=== PATIENT | female | born 1940 | race African-American/Black ===

== ENCOUNTER 2020-05-02 08:22 | Emergency (ER) | payer OTHER, MEDICAID ==
[2020-05-02] MEDS ORDERED: METOCLOPRAMIDE HCL INJ/PF 10 MG/2 ML SDV IV ONE (09:56)
--- NOTE | 2020-05-02 10:10 | ER Document Report ---
ED Headache - General Chief Complaint: Headache >24 hrs old Stated Complaint: HEADACHE Notes: CHIEF COMPLAINT: Left-sided headache for 2 days HPI: 80-year-old female with history of migraine headaches presenting for left- sided headache over the last 2 days has been fairly constant. Started as a discomfort around the left eye went into the left holiness and then into the left posterior scalp region. Does not change with position or movement. She reports no specific blurring of vision of the left eye. No weakness numbness or tingling in the left or right extremities. No slurred speech. States this feels atypical for her migraines she did try to take Fioricet at home without resolution of the headache. She has not had a fever or other recent illness. ROS: See HPI - all other systems were reviewed and are otherwise negative Constitutional: no fever Eyes: no drainage, no blurred vision ENT: no runny nose, no sore throat Cardiovascular: no chest pain Resp: no SOB, no cough GI: no vomiting, no diarrhea, no abdominal pain : no dysuria Integumentary: no rash Allergy: no hives Musculoskeletal: no extremity pain or swelling Neurological: no numbness/tingling, no weakness, positive headache MEDICATIONS: I agree with the patient medications as charted by the RN. ALLERGIES: I agree with the allergies as charted by the RN. PAST MEDICAL HISTORY/PAST SURGICAL HISTORY: Reviewed and agree as charted by RN. SOCIAL HISTORY: Reviewed and agree as charted by RN. FAMILY HISTORY: No significant familial comorbid conditions directly related to patient complaint EXAM: Reviewed vital signs as charted by RN. CONSTITUTIONAL: Alert and oriented and responds appropriately to questions. Well-appearing; well-nourished HEAD: Normocephalic; atraumatic EYES: PERRL; Conjunctivae clear, sclerae non-icteric. No photophobia. Funduscopic exam does not reveal evidence of disc edema or hemorrhage ENT: normal nose; no rhinorrhea; moist mucous membranes; pharynx without lesions noted, no uvula edema or deviation, no tonsillar hypertrophy, phonation normal NECK: Supple without meningismus; non-tender; no cervical lymphadenopathy, no masses CARD: RRR; no murmurs, no clicks, no rubs, no gallops; symmetric distal pulses RESP: Normal chest excursion without splinting or tachypnea; breath sounds clear and equal bilaterally; no wheezes, no rhonchi, no rales, pulse oximetry 97% on room air not hypoxic ABD/GI: Normal bowel sounds; non-distended; soft, non-tender, no rebound, no guarding; no palpable organomegaly or masses. BACK: The back appears normal and is non-tender to palpation, there is no CVA tenderness EXT: Normal ROM in all joints; non-tender to palpation; no cyanosis, no effusions, no edema SKIN: Normal color for age and race; warm; dry; good turgor; no acute lesions noted, specifically in the left periorbital region or left scalp region NEURO: Moves all extremities equally; Motor and sensory function intact. Patient moves all extremities equally. Sensation intact and equal bilateral upper and lower extremities. Strength equal 5/5 bilateral upper and lower extremities. CN II through XII grossly intact PSYCH: The patient's mood and manner are appropriate. Grooming and personal hygiene are appropriate. MDM: 80-year-old female with a left-sided headache that began around the eye went into the holiness into the posterior scalp. She has no visible rash to suggest shingles. She has a history of migraines this may be atypical. She has not had any imaging for the last [address] given the patient's age and headache complaint. Will obtain baseline screening labs including sed rate to evaluate for temporal arteritis. The patient was evaluated during the global COVID-19 pandemic and that diagnosis was suspected/considered upon their initial presentation. Their evaluation, treatment and testing was consistent with current guidelines for patients who present with complaints or symptoms that may be related to COVID-19 - Related Data Allergies/Adverse Reactions: morphine Allergy (Severe, Verified 05/02/20 09:27) Swelling of Throat diphenhydramine [From Benadryl] Adverse Reaction (Mild, Verified 05/02/20 09:27) Tachycardia Home Medications: chlorthalidone, ventolin prn, cetirizine, fiorcet, k cl er, rosuvastatin, azelastine, omeprazole, diltiazem, gabapentin, metformin, losartan Past Medical History - Social History Smoking Status: Never Smoker Chew tobacco use (# tins/day): No Frequency of alcohol use: None Drug Abuse: None Family History: Reviewed & Not Pertinent Patient has homicidal ideation: No - Past Medical History Cardiac Medical History: Reports: Hx Hypercholesterolemia, Hx Hypertension Neurological Medical History: Reports: Hx Migraine Endocrine Medical History: Reports: Hx Diabetes Mellitus Type 2 GI Medical History: Reports: Hx Gastroesophageal Reflux Disease Physical Exam - Vital signs Vitals: Temp Pulse Resp BP Pulse Ox 98.0 F 71 16 191/93 H 98 05/02/20 08:29 05/02/20 08:29 05/02/20 08:29 05/02/20 08:29 05/02/20 08:29 Course - Re-evaluation Re-evalutation: 05/02/20 13:[address] shows sinusitis with possible fungal component, discussed with Dr. Levin attending will place on Diflucan and Augmentin. Patient is from [place], I discussed the findings with her. The sed rate is not greater than 40 making temporal arteritis less likely. Patient will be started on Diflucan and Augmentin. She has an ENT that she follows with in [place] will give her a copy of her CT images on disc to bring to them for follow-up - Vital Signs Vital signs: Temp Pulse Resp BP Pulse Ox 98.0 F 71 16 191/93 H 98 05/02/20 08:29 05/02/20 08:29 05/02/20 08:29 05/02/20 08:29 05/02/20 08:29 - Laboratory Results Result Diagrams: 05/02/20 10:44 05/02/20 10:44 Laboratory Results Interpreted: 05/02/20 05/02/20 10:44 10:44 RDW 14.5 H Seg Neutrophils % 82.1 H ESR 38 H Glucose 155 H Total Protein 8.6 H Critical Laboratory Results Reviewed: No Critical Results - Radiology Results Critical Radiology Results Reviewed: No Critical Results Discharge - Discharge Clinical Impression: Left-sided headache Sinusitis Qualifiers: Sinusitis location: unspecified location Chronicity: acute Recurrence: not specified as recurrent Qualified Code(s): J01.90 - Acute sinusitis, unspecified Condition: Stable Disposition: HOME, SELF-CARE Additional Instructions: Follow-up with your ears nose throat doctors in [place] when you return home. Take the antibiotics and antifungals as prescribed. Your CT imaging suggested an acute sinus infection with a fungal component. You have been given a copy of your images on disc to take to your ENT physicians for follow-up return for any concerns Prescriptions: Amoxicillin/Potassium Clav [Augmentin 875-125 Tablet] 1 tab PO Q12 #20 tablet Fluconazole [Diflucan 100 Mg Tablet] 100 mg PO DAILY #7 tablet
[2020-05-02 11:15] LABS: ABSOLUTE MONOCYTES (AUTO) 0.3 10^3/uL (0.1-1.4); ABSOLUTE NEUT (AUTO) 5.9 10^3/uL (1.7-8.2); BASOPHILS % (AUTO) 0.3 % (0-2); HEMATOCRIT 41.1 % (36.0-47.0); HEMOGLOBIN 13.7 g/dL (12.0-15.5); LYMPHOCYTES % (AUTO) 13.5 % (13-45); MEAN CORPUSCULAR HEMOGLOBIN 31.8 pg (27.0-33.4); MEAN CORPUSCULAR HGB CONC 33.3 g/dL (32.0-36.0); MEAN CORPUSCULAR VOLUME 95 fl (80-97); MONOCYTES % (AUTO) 4.1 % (3-13); PLATELET COUNT 164 10^3/uL (150-450); RED BLOOD COUNT 4.31 10^6/uL (3.72-5.28); RED CELL DISTRIBUTION WIDTH 14.5 % (11.5-14.0); SEGMENTED NEUTROPHILS % (AUTO) 82.1 % (42-78); TOTAL CELLS COUNTED % (AUTO) 100 %; WHITE BLOOD COUNT 7.2 10^3/uL (4.0-10.5)
[2020-05-02 11:22] LABS: ALBUMIN 4.6 g/dL (3.5-5.0); ALKALINE PHOSPHATASE 60 U/L (38-126); ANION GAP 6 (5-19); ASPARTATE AMINO TRANSFERASE 32 U/L (14-36); BILIRUBIN,DIRECT 0.2 mg/dL (0.0-0.4); BILIRUBIN,TOTAL 0.4 mg/dL (0.2-1.3); BLOOD UREA NITROGEN 8 mg/dL (7-20); CALCIUM 10.1 mg/dL (8.4-10.2); CARBON DIOXIDE 29 mmol/L (22-30); CHLORIDE 106 mmol/L (98-107); GLUCOSE 155 mg/dL (75-110); POTASSIUM 4.4 mmol/L (3.6-5.0); TOTAL PROTEIN 8.6 g/dL (6.3-8.2)
--- NOTE | 2020-05-02 11:59 | RADIOLOGY REPORT (SQ) ---
EXAM DESCRIPTION: CT HEAD WITHOUT IMAGES COMPLETED DATE/TIME: 05/02/2020 11:19 am REASON FOR STUDY: left headache COMPARISON: None. TECHNIQUE: Axial images acquired through the brain without intravenous contrast. Images reviewed wi th bone, brain and subdural windows. Additional sagittal and coronal reconstructions were generated. Images stored on PACS. All CT scanners at this facility use dose modulation, iterative reconstruction, and/or weight based d osing when appropriate to reduce radiation dose to as low as reasonably achievable (ALARA). [facility]: Dose Right [facility]: CareDose [facility]: Dose Right [facility]: Teradose 4D [facility]: Smart Feebbo RADIATION DOSE: CT Rad equipment meets quality standard of care and radiation dose reduction techniq ues were employed. CTDIvol: 48.8 mGy. DLP: 860 mGy-cm. mGy. LIMITATIONS: None. FINDINGS: VENTRICLES: Normal size and configuration. CEREBRUM: No masses. No hemorrhage. No midline shift. Few punctate foci of hypoattenuation in the white matter most likely due to chronic micro-vascular ischemic change. No evidence for acute infarc tion. CEREBELLUM: No masses. No hemorrhage. No alteration of density. No evidence for acute infarction. EXTRAAXIAL SPACES: No fluid collections. No masses. ORBITS AND GLOBE: No intra- or extraconal masses. Normal contour of globe without masses. CALVARIUM: No fracture. PARANASAL SINUSES: Right sphenoid and bilateral maxillary fluid levels. Complete opacification of th e left sphenoid compartment noting some internal hyperattenuation. Scattered ethmoid air cell opacit ies. SOFT TISSUES: No mass or hematoma. OTHER: No other significant finding. IMPRESSION: Mild changes of microvascular ischemia. Incidental finding of paranasal sinusitis; the appearance of some increased attenuation in the left sphenoid compartment suggests fungal component. EVIDENCE OF ACUTE STROKE: NO. TECHNICAL DOCUMENTATION: JOB ID: [id number] Quality ID # [id number]: Final reports with documentation of one or more dose reduction techniques (e.g., Au tomated exposure control, adjustment of the mA and/or kV according to patient size, use of iterative reconstruction technique) 2010 [employer]- All Rights Reserved Reading location - IP/workstation name: [email or web address]
[2020-05-02 12:00] LABS: ERYTHROCYTE SEDIMENTATION RATE 38 mm/hr (0-30)
[2020-05-02] MEDS ORDERED: AMOXICILLIN TR/POT CLAVULANATE 875-125 MG TAB PO ONE (13:00)
[2020-05-02] MEDS ORDERED: FLUCONAZOLE 100 MG TABLET PO ONE (13:00)
[2020-05-02 13:38] VITALS: BP 189/83
[2020-05-02] MEDS ORDERED: KETOROLAC TROMETHAMINE INJ/PF 30 MG/1 ML SDV ONE (13:40)
[2020-05-02] MEDS ORDERED: KETOROLAC TROMETHAMINE INJ/PF 30 MG/1 ML SDV IV ONE (13:49)
== END 2020-05-02 13:58 | disposition home or self-care (01) ==
LOC: ER 08:22
DX: J01.90 Acute sinusitis, unspecified (principal); R51.9 Headache, unspecified; H57.12 Ocular pain, left eye; H53.8 Other visual disturbances; Z88.8 Allergy status to other drugs, medicaments and biological substances; Z79.899 Other long term (current) drug therapy; I10 Essential (primary) hypertension; E11.9 Type 2 diabetes mellitus without complications
CPT/HCPCS: 99285; 96374; 96375; 36415; 85025; 85652; 80053; 70450; J1885; J2765; A9270; J3490